=== PATIENT | female | born 1970 | race Caucasian/White ===

== ENCOUNTER 2016-05-06 08:28 | Emergency (ER) | payer OTHER ==
[~2016-05-06] VITALS: Ht 160 cm; Wt 70.3 kg
[2016-05-06] MEDS ORDERED: ACET50TAOT PO (08:47)
[2016-05-06] MEDS ORDERED: ALBU17IN INH (09:42)
[2016-05-06] MEDS ORDERED: ZITHTAB PO (09:43)
[2016-05-06] MEDS ORDERED: MUCI600T34 PO (09:44)
[2016-05-06] MEDS ORDERED: LEVALBUTEROL 1.25 MG/0.5 ML CONCENTRATE NEB NEB ONE (09:45)
[2016-05-06] MEDS ORDERED: KETOROLAC 30 MG/ML VIAL (J1885) IV ONE (09:45)
[2016-05-06] MEDS ORDERED: ACETAMINOPHEN 325 MG TAB PO ONE (09:45)
[2016-05-06] MEDS ORDERED: NS 1,000 ML IV ONE (09:45)
[2016-05-06] MEDS ORDERED: CLAR1TAB2 PO (09:45)
[2016-05-06] MEDS ORDERED: diphenhydrAMINE INJ 50MG/ML VIAL (J1200) IV ONE (09:45)
[2016-05-06] MEDS ORDERED: ONDANSETRON 4MG/2ML VIAL (J2405) IV ONE (09:45)
--- NOTE | 2016-05-06 10:19 | REP ---
Clinical: Cough and shortness of breath . Comparison: None . Technique: PA and lateral. Findings: The mediastinum and cardiac silhouette are normal. The lung cox are clear and without acute consolidation, effusion, or pneumothorax. The skeletal structures are intact and normal. Impression: 1. No acute cardiopulmonary process. Signed by Anup Martinez MD 05/06/2016 10:11 A
[2016-05-06] MEDS ORDERED: ZOFR4TAB3 PO (10:34)
[2016-05-06] MEDS ORDERED: NAPR500T PO (10:35)
[2016-05-06] MEDS ORDERED: REGL10TA6 PO (10:35)
[2016-05-06] MEDS ORDERED: AZITHROMYCIN 250 MG TAB PO ONE (10:45)
[2016-05-06 10:52] VITALS: BP 125/75
== END 2016-05-06 10:53 | disposition home or self-care (01) ==
LOC: M ED 10:06
DX: R51 Headache (principal); J01.90 Acute sinusitis, unspecified; R11.2 Nausea with vomiting, unspecified; J20.9 Acute bronchitis, unspecified; J45.909 Unspecified asthma, uncomplicated

== ENCOUNTER → 2021-06-02 | Outpatient (REF) | payer BC, OTHER ==
[~2021-06-02] MED LIST: ACET500T15 PO; ALBU17IN INH; CLAR1TAB2 PO; MUCI600T37 PO; NAPR-837 PO; REGL10TA6 PO; ZITHTAB PO; ZOFR4TAB14 PO
== END ==
LOC: M SFHCDERM 17:23
PROVIDERS: ATTEND Nurse Practitioner Family
DX: C43.71 Malignant melanoma of right lower limb, including hip (principal)

== ENCOUNTER → 2021-07-03 | Outpatient (REF) | LOC: M EMP 10:50 | PROVIDERS: ATTEND Family Medicine | DX: Z11.52 Encounter for screening for COVID-19 (principal) ==

== ENCOUNTER → 2021-12-13 | Outpatient (CLI) | payer BC ==
[2021-12-13 13:08] LABS: BASO % 0.4 % (0.0-1.0); EOS # 0.1 10^3/uL (0.0-0.5); EOS % 2.6 % (0.0-3.0); LYMPH # 1.9 10^3/uL (1.5-5.0); LYMPH % 33.9 % (24.0-44.0); MEAN CORPUSCULAR HEMOGLOBIN 28.3 pg (27.0-33.0); MEAN CORPUSCULAR HGB CONC 31.8 g/dl (32.0-36.5); MEAN CORPUSCULAR VOLUME 89.1 fl (80.0-96.0); MONO # 0.5 10^3/uL (0.0-0.8); MONO % 9.5 % (2.0-8.0); NEUTROPHILS # 2.9 10^3/uL (1.5-8.5); NEUTROPHILS % 53.4 % (36.0-66.0); PLATELET COUNT, AUTOMATED 347 10^3/uL (150-450); RED BLOOD COUNT 4.94 10^6/uL (4.00-5.40); WHITE BLOOD COUNT 5.5 10^3/uL (4.0-10.0)
[2021-12-13 13:50] LABS: ALBUMIN 4.2 GM/DL (3.2-5.2); ALT/SGPT 18 U/L (12-78); BILIRUBIN,TOTAL 0.4 MG/DL (0.2-1.0); BLOOD UREA NITROGEN 16 MG/DL (7-18); CALCIUM LEVEL 9.6 MG/DL (8.5-10.1); CARBON DIOXIDE LEVEL 25 MEQ/L (21-32); CHLORIDE LEVEL 107 MEQ/L (98-107); CHOLESTEROL LEVEL 260 MG/DL (<200); CHOLESTEROL RISK RATIO 4.062 (<5); CREATININE FOR GFR 0.74 MG/DL (0.55-1.30); FREE T4 1.02 NG/DL (0.76-1.46); GLOMERULAR FILTRATION RATE > 60.0 (>51); GLUCOSE, FASTING 94 MG/DL (70-100); HDL CHOLESTEROL 64 MG/DL (>40); LDL CHOLESTEROL 167 MG/DL (<100); NON-HDL-C 196 MG/DL; POTASSIUM SERUM 4.4 MEQ/L (3.5-5.1); SODIUM LEVEL 138 MEQ/L (136-145); THYROID STIMULATING HORMONE 0.423 uIU/ML (0.358-3.740); TOTAL PROTEIN 7.7 GM/DL (6.4-8.2); TRIGLYCERIDES LEVEL 146 MG/DL (<150)
[2021-12-13 14:21] LABS: TOTAL 25(OH) VITAMIN D 32.1 NG/ML (30.0-100.0)
[2021-12-13 15:17] LABS: HEMOGLOBIN A1c 5.7 %
== END ==
LOC: M LAB 11:44
PROVIDERS: ATTEND Nurse Practitioner Family
DX: Z13.228 Encounter for screening for other metabolic disorders (principal)

== ENCOUNTER → 2022-06-19 | Outpatient (REF) | payer BC | LOC: M SFHCDERM 09:48 | PROVIDERS: ATTEND Physician Assistant | DX: B35.1 Tinea unguium (principal) ==

== ENCOUNTER → 2022-07-13 | Outpatient (REF) | LOC: M EMP 11:26 | PROVIDERS: ATTEND Family Medicine | DX: Z11.52 Encounter for screening for COVID-19 (principal) ==